=== PATIENT | female | born 1940 | race Caucasian/White ===

== ENCOUNTER → 2017-07-31 | Outpatient (CLI) | payer MEDICARE, OTHER, BC ==
[~2017-07-31] MED LIST: ARMO120T PO; ARMO90TA PO; DEXA0.5T PO; DEXA2TAB PO; MULTTAB24 PO; OMEP20TA93 PO; PREV30CA36 PO; RANI150 PO; VITA1000 PO; VITACAP7 PO
[2017-07-31 09:56] LABS: AUTOMATED NEUTROPHIL # 10.6 TH/MM3 (1.8-7.7); BASOPHIL % 0.1 % (0.0-2.0); EOSINOPHIL % 0.1 % (0.0-4.0); HEMATOCRIT 38.6 % (35.0-46.0); HEMOGLOBIN 12.9 GM/DL (11.6-15.3); LYMPH % 17.4 % (9.0-44.0); LYMPHOCYTE # 2.4 TH/MM3 (1.0-4.8); MEAN CORPUSCULAR HEMOGLOBIN 29.3 PG (27.0-34.0); MEAN CORPUSCULAR HGB CONC 33.4 % (32.0-36.0); MEAN PLATELET VOLUME 8.7 FL (7.0-11.0); MONO % 4.8 % (0.0-8.0); MONOCYTE # 0.7 TH/MM3 (0-0.9); NEUT % 77.6 % (16.0-70.0); PLATELET COUNT 320 TH/MM3 (150-450); RED BLOOD COUNT 4.39 MIL/MM3 (4.00-5.30); WHITE BLOOD COUNT 13.6 TH/MM3 (4.0-11.0)
[2017-07-31 10:00] LABS: INTERNATIONAL NORMALIZED RATIO 0.9 RATIO; PROTHROMBIN TIME - PATIENT 9.5 SEC (9.8-11.6)
[2017-07-31 10:15] LABS: BICARBONATE 30.1 MEQ/L (21.0-32.0); CREATININE 0.77 MG/DL (0.50-1.00)
--- NOTE | 2017-07-31 11:32 | RADRPT ---
EXAM DATE/TIME: 07/31/2017 10:20 [facility] COMPARISON: CHEST EXPIRATION ONLY, January 02, 2016, 15:21. INDICATIONS : Evaluate for pneumonia, pneumothorax or communicable disease. Pre op craniotomy. MEDICAL HISTORY : None. SURGICAL HISTORY : left lung biopsy, left lobectomy ENCOUNTER: Initial ACUITY: 1 day PAIN SCORE: 0/10 LOCATION: Bilateral chest FINDINGS: PA and lateral views of the chest demonstrate the lungs to be symmetrically aerated without evidence of mass, infiltrate or effusion. The cardiomediastinal contours are unremarkable. Osseous structure s are intact. CONCLUSION: No acute disease. Anthony Jeong MD on July 31, 2017 at 11:26 Board Certified Radiologist. This report was verified electronically.
--- NOTE | 2017-07-31 20:17 | EKG ---
Date Performed: 07/31/2017 Time Performed: 09:26:02 PTAGE: 77 years EKG: SINUS BRADYCARDIA POSSIBLE RIGHT VENTRICULAR CONDUCTION DELAY VOLTAGE CRITERIA FOR LVH ABNO RMAL ECG NO PREVIOUS TRACING DOCTOR: Alcides Matthews Interpretating Date/Time 07/31/2017 20:14:48
== END ==
LOC: CPRE 08:44
PROVIDERS: ATTEND Neurological Surgery
DX: Z01.812 Encounter for preprocedural laboratory examination (principal); Z01.811 Encounter for preprocedural respiratory examination; Z01.810 Encounter for preprocedural cardiovascular examination; C71.9 Malignant neoplasm of brain, unspecified; R94.31 Abnormal electrocardiogram [ECG] [EKG]
CPT/HCPCS: 36415; 71046; 80048; 85025; 85610; 85730; 87640; 87641; 93005

== ENCOUNTER 2017-08-05 06:16 | Inpatient (IN) | payer MEDICARE, BC ==
[~2017-08-05] VITALS: Ht 152.4 cm; Wt 85.0 kg
[~2017-08-05 06:16] MED LIST changes: -ARMO90TA PO; -DEXA0.5T PO; -PREV30CA36 PO; -RANI150 PO
[2017-08-05] MEDS ORDERED: LACTATED RINGER'S 1000 ML IV PRN (06:45)
[2017-08-05] MEDS ORDERED: METOPROLOL TARTRATE 25 MG TAB PO PRN (06:45)
[2017-08-05] MEDS ORDERED: SODIUM CHLORID 0.9% 500 ML IV PRN (06:45)
[2017-08-05] MEDS ORDERED: POVIDONE IODINE 5% (ANTISEPSIS KIT) 4 APPLICATIONS EACH NARE PRN (06:45)
[2017-08-05] MEDS ORDERED: CHLORHEXIDINE GLUCONATE 2 % 1 PACK (2 CLOTHS) TOPICAL PRN (06:45)
[2017-08-05] MEDS ORDERED: LACTATED RINGER'S 1000 ML INJ 1,000 ML IV SCH (06:45)
[2017-08-05] MEDS ORDERED: ceFAZolin 1,000 MG/NS 100 ML IV SCH ×2 (06:45)
[2017-08-05] MEDS ORDERED: LIDOCAINE 1%/EPINEPHrine 1:100,000 SOLN 30 ML VIAL ONE (07:19)
[2017-08-05] MEDS ORDERED: THROMBIN (TOPICAL) 5,000 UNIT VIAL ONE (07:19)
[2017-08-05] MEDS ORDERED: GENTAMICIN SULFATE 80 MG/2 ML VIAL ONE (07:20)
[2017-08-05] MEDS ORDERED: GELATIN POWDER 1 GM PACKET ONE (07:20)
[2017-08-05] MEDS ORDERED: GELFOAM SIZE 100 ONE (07:22)
[2017-08-05] MEDS ORDERED: ceFAZolin INJ 1,000 MG VIAL IV ONE ×2 (09:30→12:00)
[2017-08-05] MEDS ORDERED: ONDANSETRON HCL 4 MG/2 ML VIAL IV ONE (12:00)
[2017-08-05] MEDS ORDERED: NEOSTIGMINE 5 MG/5 ML SYRINGE IV PUSH ONE (12:00)
[2017-08-05] MEDS ORDERED: GLYCOPYRROLATE 1 MG/5 ML SYRINGE IV PUSH ONE (12:00)
[2017-08-05] MEDS ORDERED: SODIUM CHLOR 0.9% 1000 ML INJ 1,000 ML IV ONE (12:00)
[2017-08-05] MEDS ORDERED: DEXAMETHASONE SOD PHOS 4 MG/ML VIAL IV ONE (12:00)
[2017-08-05] MEDS ORDERED: PHENYLEPH/NS 1000 MCG/10 ML SYR IV ONE (12:00)
[2017-08-05] MEDS ORDERED: ROCURONIUM INJ 50 MG/5 ML SYRINGE IV PUSH ONE (12:00)
[2017-08-05] MEDS ORDERED: LIDOCAINE HCL 1% PF 5 ML SYRINGE OTHER ONE (12:00)
[2017-08-05] MEDS ORDERED: PROPOFOL 200 MG/20 ML AMP IV ONE (12:00)
[2017-08-05] MEDS ORDERED: ePHEDrine/NS 25 MG/5 ML SYRINGE IV ONE (12:00)
[2017-08-05] MEDS ORDERED: SODIUM CHLORID 0.9% 500 ML INJ 500 ML IV ONE (12:00)
[2017-08-05] MEDS ORDERED: LACTATED RINGER'S 1000 ML INJ 1,000 ML IV ONE (12:00)
[2017-08-05] MEDS ORDERED: ACETAMINOPHEN 1000 MG/100 ML 100 ML IV ONE (13:34)
[2017-08-05] MEDS ORDERED: ONDANSETRON HCL 4 MG/2 ML VIAL IV PUSH PRN (14:15)
[2017-08-05] MEDS ORDERED: ACETAMINOPHEN/HYDROcodone 325 MG/10 MG TAB PO PRN (14:15)
[2017-08-05] MEDS ORDERED: ACETAMINOPHEN/HYDROcodone 325 MG/5 MG TAB PO PRN (14:15)
[2017-08-05] MEDS ORDERED: HYDROmorphone HCL PF 1 MG/ML VIAL IV PUSH PRN (14:15)
[2017-08-05] MEDS ORDERED: NALOXONE HCL 0.4 MG/ML AMP IV PUSH PRN (14:15)
--- NOTE | 2017-08-05 14:25 | PD.OP ---
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 left frontal craniotomy for resection metastatic brain lesion 2. Use of intraoperative frameless stereotactic navigation for scalp and bone flap planning and resection of the neoplasm Anesthesia: general Surgeon: Paul Tomas Pathological Technician(s): Rayna Diaz Operation and Findings: Findings: Relatively firm well encapsulated lesion immediately subcortical, right frontal parafalcine region. A branch of the callosal marginal artery adherent to the anterolateral border of the neoplasm. Procedure in detail: The patient was brought into the operating room and general endotracheal anesthesia induced without difficulty. Lines were established by anesthesia JULIA hose and sequential compression devices were in place Cheung catheter was in place Appropriate timeout procedure was performed with all personal present and in agreement The patient was positioned in supine position with all extremities appropriately padded. The head was placed in the 3-point fixation device and secured to the operating room table with the head and neck in neutral position The BrainLab system was registered with the laser facial registration system and landmarks verified. The BrainLab system was used to jessica the initial scalp flap and craniotomy opening, and was further used extensively during the procedure to guide the resection of the neoplasm. The hair overlying the scalp incision was shaved with clippers, and the operative site was sterilely prepped and draped. 1% Xylocaine with epinephrine was used for local infiltration over the incision site which was made in a curvilinear fashion over the right frontal region and carried sharply down to the cranium. The scalp flap was elevated with the periosteal elevator and retracted with large scalp hooks. The TPS drill with the 5 mm bone bur was used to place a small bur hole, and the craniotome was used to incise the bone flap. 4-0 Nurolon dural tack up sutures placed through wire passing holes made along the edge of the craniotomy site were used as needed. The dura was opened in a cruciate fashion and the edges retracted with 4-0 Nurolon suture. There was mild brain edema noted upon opening the dura. Patient was given Decadron during the procedure as needed. The Birch retractor was used along with cottonoid patties for gentle retraction of the frontal brain parenchyma. The parenchyma overlying the neoplasm was opened with the bipolar forceps. The neoplasm was circumferentially from the surrounding tissue with the Lyndon dissectors and the bipolar forceps with any bridging vessels coagulated with the bipolar forceps and incised with the microscissors. Any major vascular structures were carefully preserved. The branch of the callosal marginal artery over the anterior lateral aspect of the neoplasm was carefully resected away with the rotund dissectors and preserved. Cottonoid patties were used as needed to maintain the resection plane surrounding the tumor. Once the periphery of the tumor was freed up and clearly delineated, the tumor was removed in a single section and sent for frozen section and routine pathology. 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 A gross total resection of the lesion was achieved. The tumor resection site was carefully examined and bleeding carefully controlled. There was no significant bleeding at the time of closure. The brain was soft and pulsatile at the time of closure The closure was performed with 4-0 Nurolon interrupted and running for the dura , with a DuraGen patch graft used over areas of thin dura, with titanium maxillofacial plates and screws to secure the bone flap, 2-0 Vicryl for the galeal closure, Pendleton for the skin closure. A dressing of sterile Telfa, 4 x 4's, and a head stockinette were placed. The patient was turned back into supine position on the operating room table The 3-point head fixation device was removed The patient was taken to recovery room in stable condition All counts were correct at the end of the case Estimated blood loss was 150 cc. Specimen of the neoplasm was sent to pathology for frozen and permanent section Paul Tomas MD Aug 05, 2017 14:25
[2017-08-05] MEDS ORDERED: DO NOT ADM ANY ANTICOAGULANT DRUGS PRN (15:00)
[2017-08-05 15:06] LABS: AUTOMATED NEUTROPHIL # 18.9 TH/MM3 (1.8-7.7); BASOPHIL % 0.1 % (0.0-2.0); LYMPH % 4.3 % (9.0-44.0); LYMPHOCYTE # 0.9 TH/MM3 (1.0-4.8); MEAN CELL VOLUME 88.4 FL (80.0-100.0); MEAN CORPUSCULAR HEMOGLOBIN 29.4 PG (27.0-34.0); MEAN CORPUSCULAR HGB CONC 33.3 % (32.0-36.0); MEAN PLATELET VOLUME 8.3 FL (7.0-11.0); MONOCYTE # 0.6 TH/MM3 (0-0.9); NEUT % 92.6 % (16.0-70.0); PLATELET COUNT 275 TH/MM3 (150-450); RED BLOOD COUNT 4.07 MIL/MM3 (4.00-5.30); RED CELL DISTRIBUTION WIDTH 14.5 % (11.6-17.2); WHITE BLOOD COUNT 20.5 TH/MM3 (4.0-11.0)
[2017-08-05] MEDS ORDERED: PILL SPLITTER OTHER PRN (15:15)
[2017-08-05 15:42] LABS: BICARBONATE 26.2 MEQ/L (21.0-32.0); CALCIUM 8.3 MG/DL (8.5-10.1); CREATININE 0.73 MG/DL (0.50-1.00)
[2017-08-05 16:00] VITALS: BP 129/59; PULSE 66; RESP 20; TEMP 98.5; O2SAT 97
[2017-08-05] MEDS: DOCUSATE SODIUM 100 MG CAP PO SCH (19:59)
[2017-08-05 20:00] VITALS: BP 146/62; PULSE 80; RESP 25; TEMP 98.3; O2SAT 98
[2017-08-05 20:36] VITALS: O2SAT 97
[2017-08-05] MEDS ORDERED: DEXAMETHASONE 4 MG TAB PO SCH (21:00)
[2017-08-05 22:00] VITALS: PULSE 75
[2017-08-06] VITALS (8 sets, daily range): BP systolic 143–174; BP diastolic 65–76; PULSE 62–72; RESP 15–23; TEMP 97.9–99.1; O2SAT 96–97
--- NOTE | 2017-08-06 04:31 | RADRPT ---
EXAM DATE/TIME: 08/06/2017 04:15 [facility] COMPARISON: No previous studies available for comparison. INDICATIONS : Post op, left frontal craniotomy, resection of metastatic brain tumor. RADIATION DOSE: 56.35 CTDIvol (mGy) MEDICAL HISTORY : Carcinoma, lung. Metastatic, brain. Aneurysm, intracranial. SURGICAL HISTORY : Craniotomy. ENCOUNTER: Initial ACUITY: 1 day PAIN SCALE: 0/10 LOCATION: cranial TECHNIQUE: Multiple contiguous axial images were obtained of the head. Using automated exposure control and adj ustment of the mA and/or kV according to patient size, radiation dose was kept as low as reasonably a chievable to obtain optimal diagnostic quality images. DICOM format image data is available electro nically for review and comparison. FINDINGS: The patient is status post left frontal craniotomy for resection of a metastatic lesion in the brain. There is a mucus retention cyst in the left maxillary sinus and small air fluid level. There is pneu mocephalus in the left frontal region adjacent to the craniotomy site and subcutaneous air is seen in the left frontal scalp soft tissues with overlying skin harley. There is a small focus of intracran ial blood in the left frontal extra-axial space on axial image 23. There is a small parenchymal bleed in the left frontal lobe on axial image 18 measuring 9.7 mm. There is a large area of hypodensity in the left frontal lobe felt to represent vasogenic edema. CONCLUSION: Postoperative changes are seen status post left frontal craniotomy. Large area of vasogenic edema in the left frontal lobe is identified. Mani Huff MD on August 06, 2017 at 4:27 Board Certified Radiologist. This report was verified electronically.
[2017-08-06] MEDS ORDERED: THYROID 60 MG TAB PO SCH (06:00)
[2017-08-06 06:56] LABS: AUTOMATED NEUTROPHIL # 13.3 TH/MM3 (1.8-7.7); BASOPHIL % 0.2 % (0.0-2.0); HEMATOCRIT 35.9 % (35.0-46.0); HEMOGLOBIN 12.4 GM/DL (11.6-15.3); LYMPH % 12.6 % (9.0-44.0); LYMPHOCYTE # 2.1 TH/MM3 (1.0-4.8); MEAN CELL VOLUME 87.5 FL (80.0-100.0); MEAN CORPUSCULAR HEMOGLOBIN 30.3 PG (27.0-34.0); MEAN CORPUSCULAR HGB CONC 34.6 % (32.0-36.0); MEAN PLATELET VOLUME 8.2 FL (7.0-11.0); MONO % 8.8 % (0.0-8.0); MONOCYTE # 1.5 TH/MM3 (0-0.9); NEUT % 78.4 % (16.0-70.0); PLATELET COUNT 242 TH/MM3 (150-450); RED BLOOD COUNT 4.11 MIL/MM3 (4.00-5.30); RED CELL DISTRIBUTION WIDTH 14.5 % (11.6-17.2)
[2017-08-06 07:16] LABS: CALCIUM 8.8 MG/DL (8.5-10.1); CREATININE 0.65 MG/DL (0.50-1.00); INTERNATIONAL NORMALIZED RATIO 0.9 RATIO; PROTHROMBIN TIME - PATIENT 9.6 SEC (9.8-11.6)
[2017-08-06] MEDS ORDERED: DEXAMETHASONE 4 MG TAB PO SCH (08:00)
[2017-08-06] MEDS: DOCUSATE SODIUM 100 MG CAP PO SCH (08:07)
[2017-08-06] MEDS ORDERED: PANTOPRAZOLE SOD 20 MG DELAYED RELEASE TAB PO SCH (09:00)
[2017-08-06] MEDS ORDERED: CHOLECALCIFEROL (VIT D3) 1000 UNIT TAB PO SCH (09:00)
[2017-08-06] MEDS ORDERED: VITAMIN B COMPLEX/VIT C TAB PO SCH (09:00)
--- NOTE | 2017-08-06 09:06 | HHI.NSPN ---
(Boaz Stanley) History Chief Complaint: Some mild pain at the surgical site. (Boaz Stanley) Interval History 08/05: The patient presented to [facility] to undergo a left frontal craniotomy for resection of a metastatic brain lesion. Post-operatively she was admitted to the [facility] unit for further care and monitoring. 08/06: This morning the patient was seen ambulating the hallway with Physical Therapy prior to being seen. She ambulated the complete unit without a walker and just standby assistance. Her gait was steady. When seen she is sitting up in a chair and had finished a clear liquid breakfast. She said she felt good. She denied any headache, dizziness, double or blurry vision, speech difficulty, confusion or memory loss or difficulty with hearing. She does have some mild pain to the surgical site. She denies any pain, numbness, tingling or weakness to the extremities. She also denied any chest pain, palpitations, irregular heartbeat, shortness of breath, abdominal pain or nausea. The patient stated that she had a craniotomy yesterday. She is neurologically intact. (Boaz Stanley) Exam Results Vital Signs Date Time Temp Pulse Resp B/P (MAP) Pulse Ox O2 Delivery O2 Flow Rate FiO2 08/06/17 06:00 65 08/06/17 04:00 97.9 15 160/65 (96) 96 08/05/17 20:36 21 08/05/17 19:00 Nasal Cannula 1.00 Intake and Output 08/06/17 08/06/17 08/07/17 08:00 16:00 00:00 Intake Total 200 ml Output Total 1450 ml Balance -1250 ml (Boaz Stanley) Physical Examination GENERAL: Awake & alert sitting in chair. Affect normal, readily interacts. No apparent distress. HEENT: Normocephalic. Intact dressing to left scalp w/o any shadowing on it. PERRLA 3 mm brisk, EOMI. MMM & pink, tongue midline to protrusion. NECK: Midline cervical spine NTTP. No JVD. Trachea midline. RESPIRATORY: CTAB w/o W/R/R, equal excursion, nonlaboured, on RA. CARDIOVASCULAR: S1S2 w/RRR w/o M/G/R, monitor is sinus rhythm w/o any ectopy noted. GASTROINTESTINAL: Abdomen soft, nontender, positive bowel sounds. GENITOURINARY: Cheung catheter to BSD w/clear yellow urine. MUSCULOSKELETAL: FLORES spontaneously w/o difficulty. No evident clubbing or deformity. Extremities NTTP. Thoracolumbar spine NTTP. NEUROLOGICAL: AAOx3. Speech clear & appropriate. Follows commands w/o difficulty. CN II through XII appear grossly intact. Sensation intact to light touch to all extremities. Motor strength is 5/5 to all major flexion & extension muscle groups, to include wrist flexors & extensors and hand intrinsics & extrinsics. Gait steady. (Boaz Stanley) Lab, Micro, Other Results 08/04/17 08/04/17 08/05/17 08/05/17 08/06/17 08/06/17 06:00 18:00 06:00 18:00 06:00 18:00 Intake Total 2000 ml 300 ml Output Total 1450 ml 1900 ml Balance 550 ml -1600 ml Intake Oral 300 ml IV Total 2000 ml Output Urine Total 1300 ml 1900 ml Estimated Blood Loss 150 ml # Bowel Movements 0 Vital Signs Date Time Temp Pulse Resp B/P (MAP) Pulse Ox O2 Delivery O2 Flow Rate FiO2 08/06/17 06:00 65 08/06/17 04:00 97.9 63 15 160/65 (96) 96 08/06/17 04:00 63 08/06/17 02:00 72 08/06/17 00:00 72 08/06/17 00:00 99.1 72 17 156/67 (96) 96 08/05/17 22:00 75 08/05/17 20:36 97 21 08/05/17 20:00 98.3 80 25 146/62 (90) 98 08/05/17 20:00 80 08/05/17 19:00 98 Nasal Cannula 1.00 08/05/17 16:00 99 Nasal Cannula 1.00 08/05/17 16:00 98.5 66 20 129/59 (82) 97 08/05/17 14:50 72 16 131/67 (88) 96 Nasal Cannula 2 08/05/17 14:30 71 16 134/71 (92) 95 Nasal Cannula 2 08/05/17 14:15 74 16 130/70 (90) 96 Nasal Cannula 2 08/05/17 14:00 73 14 130/59 (82) 93 Nasal Cannula 2 08/05/17 13:45 77 14 132/61 (84) 93 Nasal Cannula 2 08/05/17 13:26 98.0 80 14 127/56 (79) 91 Nasal Cannula 4 08/05/17 06:58 98.4 58 18 144/63 (90) 99 (Boaz Stanley) Medical Decision Making Impression and Plan Impression: (1) 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 Reviewed labs for today. Improvement in leukocytosis & neutrophilia. INR 0.9 & aPTT 22.7. Sodium 141. Improvement in eGFR. CT brain this morning demonstrated post-surgical changes s/p left frontal craniotomy w/large area of vasogenic edema to the left frontal lobe. POD #1 () s/p: 1. left frontal craniotomy for resection metastatic brain lesion 2. Use of intraoperative frameless stereotactic navigation for scalp and bone flap planning and resection of the neoplasm Plan: Neuro checks. Stat CT brain for any decline in neuro status. Elevate HOB 30 degrees. Continue dexamethasone. Mobilise patient w/assistance as needed. Physical Therapy. Advance diet as tolerated. Stop IVF. D/C Cheung. Will transfer patient to a regular med/surg floor. (Boaz Stanley) Attending Statement The exam, history, and the medical decision-making described in the above note were completed with the assistance of the mid-level provider. I reviewed and agree with the findings presented. I attest that I had a [id number] encounter with the patient on the same day, and personally performed and documented my assessment and findings in the medical record. On examination today the patient is awake alert, speech clear and appropriate. Incision dry and intact Results extremities well Tolerating regular diet without difficulty Ambulating steadily without assistance 08/06/17 CT scan head images reveal mild pneumocephalus. Mild to moderate persistent left frontal edema. Stable postoperative course. Blood pressure improved from systolic 170s to systolic 140 with oral medications. Patient has home blood pressure cuff and we will monitor her blood pressure. She will follow up with primary care physician regarding a blood pressure problems. Wound care, signs and symptoms to watch for, activity precautions all fully discussed. All questions answered Patient wants to go home today Stable for discharge home (Paul Tomas MD) Boaz Stanley Aug 06, 2017 09:06 Paul Tomas MD Aug 06, 2017 19:53
[2017-08-06] MEDS ORDERED: MULTIVITAMINS/MINERALS THERAPEUTIC TAB PO SCH (11:00)
[2017-08-06] MEDS ORDERED: METOPROLOL TARTRATE 25 MG TAB PO ONE (13:45)
[2017-08-06] MEDS ORDERED: DEXA0.5T PO (19:48)
--- NOTE | 2017-08-06 19:48 | HHI.DCPOC ---
Discharge Care Plan Diagnosis: (1) Primary malignant neoplasm of lung with metastasis to brain Your Health Problems Are: Difficulty with ADL Incision/Drains Exercise Tolerance Goals to Promote Your Health * To prevent worsening of your condition and complications * To maintain your health at the optimal level Directions to Meet Your Goals Take your medications as prescribed Follow your dietary instruction Follow activity as directed Keep your appointments as scheduled Take your immunizations and boosters as scheduled If your symptoms worsen call your PCP, if no PCP go to Urgent Care Center or Emergency Room Smoking is Dangerous to Your Health. Avoid second hand smoke Call the 24-hour hour crisis hotline for domestic abuse at Paul Tomas MD Aug 06, 2017 19:48
--- NOTE | 2017-08-06 19:51 | HHI.DS ---
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 left frontal craniotomy for resection metastatic brain lesion 2. Use of intraoperative frameless stereotactic navigation for scalp and bone flap planning and resection of the neoplasm CBC/BMP: 08/06/17 0526 08/06/17 0626 Significant Findings Laboratory Tests Test 08/05/17 14:30 08/06/17 05:26 08/06/17 06:26 White Blood Count 20.5 TH/MM3 (4.0-11.0) 17.0 TH/MM3 (4.0-11.0) Neutrophils (%) (Auto) 92.6 % (16.0-70.0) 78.4 % (16.0-70.0) Lymphocytes (%) (Auto) 4.3 % (9.0-44.0) Neutrophils # (Auto) 18.9 TH/MM3 (1.8-7.7) 13.3 TH/MM3 (1.8-7.7) Lymphocytes # (Auto) 0.9 TH/MM3 (1.0-4.8) Blood Urea Nitrogen 26 MG/DL (7-18) 20 MG/DL (7-18) Random Glucose 120 MG/DL (74-106) Calcium Level 8.3 MG/DL (8.5-10.1) Estimat Glomerular Filtration Rate 78 ML/MIN (>89) Monocytes (%) (Auto) 8.8 % (0.0-8.0) Monocytes # (Auto) 1.5 TH/MM3 (0-0.9) Prothrombin Time 9.6 SEC (9.8-11.6) Activated Partial Thromboplast Time 22.7 SEC (24.3-30.1) Hospital Course Patient admitted for the above noted procedure performed without complication. Postop day #1 initial increased systolic blood pressure 170s, normalized with oral medications. Postoperative CT scan satisfactory. Dressing dry and intact on postop day #1. Patient with positive bowel movement, no bladder dysfunction postop day #1 Tolerating regular diet without difficulty. Ambulating without assistance. Stable neurologic exam. Discussed with patient and family Stable for discharge home Instructions given Follow-up outpatient Pt Condition on Discharge: Stable Discharge Disposition: Discharge Home Discharge Instructions DIET: Follow Instructions for: As Tolerated, No Restrictions ACTIVITIES You can perform: Weight Bearing As Tish Activities to Avoid: Lifting/Bending, Strenuous Activity New Medications: Dexamethasone (Dexamethasone) 0.5 Mg Tab 0.5 MG PO Q12HR for Control Inflammation, #21 TAB 0 Refills 1 tablet twice daily 7 days Then 1 tablet once daily 7 days then discontinue Continued Medications: B-Complex Vitamins (B Complex) 1 Cap 1 CAP PO DAILY for Nutritional Supplement, #30 CAP 0 Refills Cholecalciferol (Vitamin D-1000) 1,000 Unit Tab 1000 UNITS PO DAILY for Nutritional Supplement, #1 BOTTLE 0 Refills Multiple Vitamins W/ Minerals (Multi For Her) 18 Mg Iron-600 Mcg-80 Mcg Tab 18 TAB PO DAILY Omeprazole (Omeprazole) 20 Mg Tab 20 MG PO DAILY, #30 TAB 0 Refills Thyroid ([place] Thyroid) 120 Mg Tab 120 MG PO DAILY for Thyroid Supplement, #30 TAB 0 Refills Discontinued Medications: Dexamethasone (Dexamethasone) 2 Mg Tab 2 MG PO BID, #60 TAB 0 Refills Paul Tomas MD Aug 06, 2017 19:51
[2017-08-06] MEDS ORDERED: DEXAMETHASONE 0.5 MG TAB PO SCH (21:00)
[2017-08-06] MEDS ORDERED: METOPROLOL TARTRATE 25 MG TAB PO SCH (21:00)
== END 2017-08-06 20:56 | disposition home or self-care (01) | DRG 25 ==
LOC: HSDI 06:16 → N03A 14:57 → N05B 08-06 11:53
PROVIDERS: ADMIT Neurological Surgery; ATTEND Neurological Surgery
PROC: 00B00ZX Excision of Brain, Open Approach, Diagnostic (ICD-10-PCS; principal; 2017-08-05 08:30)
DX: C79.31 Secondary malignant neoplasm of brain (principal); G93.6 Cerebral edema; C34.90 Malignant neoplasm of unspecified part of unspecified bronchus or lung
CPT/HCPCS: 70450; 80048; 85025; 85610; 85730; 86850; 86900; 86901; 88307; 88331; 94150; C1713; J0131; J0690; J1100; J1580; J2370; J2405; J2710; J3010; J7030; J7040; J7120; J8540